=== PATIENT | male | born 1965 | race Caucasian/White ===

== ENCOUNTER 2016-10-06 22:40 | Inpatient (IN) | payer OTHER ==
--- NOTE | ~2016-10-06 | DS ---
Discharge Summary [facility] [address] [place]. [address] NAME: LISA KAPLAN : 69 STATUS : DIS IN PAT#: [id number] AGE: 51 ADM/REG DATE : 10/06/16 MR#: [id number] REPORT SERV DATE: 10/14/16 DICTATED BY: HUSSEIN NÚÑEZ DATE: 10/13/16 REPORT STATUS : Draft TRANSCRIBED BY: NISH DATE: 10/13/16 Data Collection from hospitalization DISCHARGE DIAGNOSES: 1. Acute coronary syndrome, unstable angina. 2. Coronary artery disease. 3. Diabetes mellitus, type 2. 4. Hypercholesterolemia. 5. Obstructive sleep apnea. CONSULTATIONS: Julieta Hernandez NP PROCEDURES PERFORMED: Left heart catheterization, left ventriculography, coronary angiography, supravalvular aortography 10/10/2016. MEDICATIONS: Moses Aspirin 325 mg with lunch, Coreg 25 mg twice daily, Plavix 75 mg daily, Lantus insulin 30 units at bedtime, levothyroxine sodium 100 mcg daily, Provigil 200 mg daily, Protonix 40 mg twice daily, Percocet 10/325 one every six hours as needed, Invokana 300 mg with lunch, Januvia 100 mg with lunch. CONDITION AT DISCHARGE: Upon discharge, he did appear to be doing well and had no further chest pain noted. DISPOSITION: He had been discharged home to continue a 4 g sodium, low cholesterol, no concentrated carbohydrate, 1800-calorie ADA cardiac diet with activity as discussed. He is to follow up with me in the office on 10/17/2016, follow up with his primary care physician as needed. HOSPITAL COURSE: This 51-year-old male had been followed by Dr. Herrera, who was known to me from prior care. He had a history of coronary artery disease with 04/02/2016, [facility], catheterization reportedly demonstrating 80% to 90% LAD stenosis then treated with 2.25 x 23 Mini Vision bare-metal stent. He had recurrent angina in May 2016. Catheterization performed by myself at [facility] demonstrated distal LAD in-stent restenosis of 90% then treated with a 2.25 x 28 SYNERGY Everolimus-Eluting stent. His cardiovascular history was further remarkable for treated hypercholesterolemia, type 2 diabetes, hypertension, preserved LV systolic function with grade 2 diastolic dysfunction per June 2016 echo and June 2016 CTA at [facility] confirming ascending aortic dilation of 4.4 cm. He had minimal activity provoked retrosternal chest discomfort lasting 30 minutes for the last five days. He presented to the emergency room describing chest pain with exertion, though the emergency room physician reported this was at rest. He was admitted and treated in a routine fashion for acute coronary syndrome including heparin and DAPT and had chest pain at rest on the morning of admission, which lasted 30 minutes. He was admitted for further evaluation and treatment. Upon admission to the hospital, he had been placed on acute coronary syndrome orders. He had been placed on Pepcid 20 mg at bedtime, Tylenol 650 mg every four hours as needed for mild pain or temperature greater than 101, Vicodin one every 4 hours as needed for moderate pain and relieved by acetaminophen. Morphine 2 mg to 4 mg IV every two hours as needed for severe pain, Zofran 4 mg IV every six hours as needed for nausea, Surfak 240 mg twice daily as needed, Plavix 75 mg daily, and Discharge Summary [address] [address] NAME: LISA KAPLAN : 69 STATUS : DIS IN PAT#: [id number] AGE: 51 ADM/REG DATE : 10/06/16 MR#: [id number] REPORT SERV DATE: 10/14/16 DICTATED BY: HUSSEIN NÚÑEZ DATE: 10/13/16 REPORT STATUS : Draft TRANSCRIBED BY: NISH DATE: 10/13/16 aspirin 325 mg orally daily. He was also begun on cardiovascular heparin drip. He had been placed on a cardiac diabetic diet. Following the day of admission, he was evaluated by Julieta Hernandez for medical management and she placed him on level 2 sliding scale insulin for aggressive control while in the hospital. He had also been placed on Levemir per his home medication and was to continue his current ADA diet as started upon hospital admission. His home oral diabetic medications were to be adjusted as needed. While in the hospital, he had been placed on Flonase twice daily for nasal congestion and he was to have humidified oxygen for his oxygen needs. He was also encouraged to use his home CPAP while here in the hospital for his obstructive sleep apnea, and he was instructed to ask his family members to bring this to the hospital. On 10/08/2016, he did continue to do well. His hemoglobin A1c was noted to be at 7.8. He was continued on his current diabetic medications. He was afebrile and his vital signs were stable. He did remain in stable condition and had no further complaints of chest pain. Catheterization had been discussed with the patient, and he was agreeable to proceed with this. On 10/09/2016, he did note that he had, had an episode of chest pain lasting less than 3 minutes. He was afebrile and his vital signs had remained stable. He was continued on supportive care. He did continue to do well, and on 10/10/2016, he did undergo the above catheterization. He had remained in stable condition and IV heparin was discontinued. As he continued to do well, he was then discharged with the above instructions. Information collected by: Tab PandeyI.T. I submit the above information as my discharge summary. [facility]/NISH Hussein Núñez M.D. / [id number] CC: Bola Martin M.D.
--- NOTE | ~2016-10-06 | HP ---
History And Physical [facility] [address] [place]. [address] NAME: LISA KAPLAN : 69 STATUS : ADM Marcos PAT#: [id number] AGE: 51 ADM/REG DATE : 10/06/16 MR#: [id number] REPORT SERV DATE: 10/07/16 DICTATED BY: HUSSEIN NÚÑEZ DATE: 10/07/16 REPORT STATUS : Draft TRANSCRIBED BY: NISH DATE: 10/07/16 DATE OF ADMISSION: 10/06/2016 CHIEF COMPLAINT: Chest pain. HISTORY OF PRESENT ILLNESS: 51-year-old man, followed by Dr. Herrera, known to me from prior care, has history of coronary artery disease with 03/2016 [facility] catheterization reportedly demonstrating 80% to 90% LAD stenosis, then treated with 2.25 x 23 Mini Vision bare metal stent. The patient had recurrent angina and 05/2016 catheterization performed by myself at [facility] demonstrated distal LAD in-stent restenosis of 90%, then treated with 2.25 x 28 Synergy Everolimus-Eluting stent. The patient's cardiovascular history is further remarkable for treated hypercholesteremia, type 2 diabetes, hypertension, preserved LV systolic function with grade 2 diastolic dysfunction. Per 06/2016 echo and 06/2016 CTA at [facility] confirming ascending aortic dilatation of 4.4 cm. The patient has had minimal activity provoked retrosternal chest discomfort lasting 30 minutes for the last five days. He came to the emergency room yesterday describing chest pain with exertion though ER physician reported this was at rest. He has been admitted and treated in a routine fashion for acute coronary syndrome including heparin and DAPT and had chest pain at rest this morning, which lasted 30 minutes. He has not had further chest pain. PAST MEDICAL HISTORY: 1. CAD-LAD BMS as defined above with in-stent restenosis treated with FTAMATA 05/2016. 2. Preserved LV systolic function, compensated diastolic dysfunction. 3. Hypertension. 4. DM 2. 5. Hypercholesterolemia. 6. Hypothyroidism. 7. Ascending aortic TAA. HOME MEDICATIONS: Carvedilol 25 mg b.i.d., levothyroxine 100 mcg daily, modafinil 200 mg daily, Invokana 300 mg daily, Januvia 100 mg daily, Lantus 20 units daily, omeprazole 20 mg daily, Plavix 75 mg daily, pravastatin 40 mg daily, aspirin 325 mg daily, not taking AndroGel. ALLERGIES: TO PENICILLIN. SOCIAL HISTORY: Does not smoke. No alcohol consumption admitted to. FAMILY HISTORY: Noncontributory. REVIEW OF SYSTEMS: Unremarkable. PHYSICAL EXAMINATION: History And Physical [address] [place]. [address] NAME: LISA KAPLAN : 69 STATUS : ADM Marcos PAT#: [id number] AGE: 51 ADM/REG DATE : 10/06/16 MR#: [id number] REPORT SERV DATE: 10/07/16 DICTATED BY: HUSSEIN NÚÑEZ DATE: 10/07/16 REPORT STATUS : Draft TRANSCRIBED BY: MODL DATE: 10/07/16 GENERAL: No acute distress. VITAL SIGNS: Blood pressure 117/74, respirations 16, temperature 97.6, pulse 64 and regular. NECK: No JVD. No carotid bruit. LUNGS: Clear to auscultation and percussion. CARDIAC: Soft S4, no murmurs, no rubs. ABDOMEN: Benign. EXTREMITIES: Warm without edema. Right and left femoral pulses +2. DATA: BUN and creatinine 14 and 1.04 yielding EGFR of 97, troponin I undetectable x2. White blood cell count 7.8 thousand, hematocrit 42.0%, and platelet count 213,000. EKG; sinus rhythm at a rate of 68, normal axis, normal intervals, normal EKG. ASSESSMENT AND PLAN: 1. Chest pain-compatible with unstable angina. Continuing DAPT. Adding aspirin. Continue other medications. Cardiac catheterization and possible PCI after weekend holiday or sooner if clinically unstable. All risks discussed. 2. Coronary artery disease-as defined above. 3. Diabetes mellitus 2-consult hospitalist. 4. Hypercholesteremia-continue statin therapy. 5. Hypothyroidism-repleted. 6. Ascending thoracic aortic aneurysm-noted. /MODL Hussein Núñez M.D. / [id number] CC: Bola Martin M.D.
--- NOTE | ~2016-10-06 | OP ---
Record Of Operation [facility] [address] [place]. [address] NAME: LISA KAPLAN : 69 STATUS : DIS Marcos PAT#: [id number] AGE: 51 ADM/REG DATE : 10/06/16 MR#: [id number] REPORT SERV DATE: 10/10/16 DICTATED BY: HUSSEIN NÚÑEZ DATE: 10/10/16 REPORT STATUS : Draft TRANSCRIBED BY: MODDaryl DATE: 10/10/16 DATE OF PROCEDURE: 10/10/2016 PROCEDURE: Left heart catheterization, left ventriculography, coronary angiography, supravalvular aortography. INDICATIONS: Known coronary artery disease, symptoms compatible with acute coronary syndrome (unstable angina, class IV angina). PROCEDURE IN DETAIL: Informed consent obtained. The patient was brought to catheterization laboratory in the fasting state with renal prophylaxis protocol initiated and intravenous heparin infusion ongoing. Routine sterile prep and drape performed. Monitored sedation administered. 2% Xylocaine with epinephrine infiltrated to right groin. A 6-Macanese sheath to right femoral artery following anterior wall puncture. A 6-Macanese angled pigtail catheter crossed the aortic valve without difficulty. Left ventricular pressures recorded. Left ventriculography in SOTO projection. Pullback to ascending aorta under pressure recording. Supravalvular aortography performed in LITHUANIAN projection. Catheter removed. A 6- Macanese JL5 and then 6-Macanese JR4 diagnostic catheters were used to cannulate coronary artery ostia with angiography of each vessel performed. All catheters removed. Right common femoral arterial sheath side port angiography was performed followed by ProGlide closure of common femoral puncture site. The patient to recovery area in satisfactory condition, without immediate complication, anticipating administration of vancomycin. TOTAL CONTRAST: 125 mL, Isovue-370. TOTAL X-RAY DOSE: 427 mGy. TOTAL MONITORED SEDATION TIME: 19 minutes. FINDINGS: Hemodynamics: Central aortic pressure 110/70 mmHg, left ventricular pressure 110/12 mmHg. LEFT VENTRICULOGRAPHY: In SOTO left ventriculography, all segments moved normally. Ejection fraction is estimated to be no lower than 60%. No mitral regurgitation identified. AORTOGRAPHY: In LITHUANIAN supravalvular aortography, dilation of the ascending aorta identified. Maximum diameter is 47 mm. 1+ aortic regurgitation is seen. CORONARIES: 1. Left main coronary artery: Medium caliber, short vessel, without stenosis. 2. LAD: Medium caliber vessel, reaching the apex of the heart. Distal LAD atresia identified. In distal LAD, widely patent stent is seen, and proximal to the stent, less than 50% narrowing is seen at the origin of a diagonal branch. Diagonal branch is patent. 3. Circumflex: Medium caliber, angiographically nondominant vessel giving rise to bifurcating obtuse marginal vessel and terminating as a very small distal obtuse Record Of Operation [facility] [address] [place]. [address] NAME: LISA KAPLAN : 69 STATUS : DIS Marcos PAT#: [id number] AGE: 51 ADM/REG DATE : 10/06/16 MR#: [id number] REPORT SERV DATE: 10/10/16 DICTATED BY: HUSSEIN NÚÑEZ DATE: 10/10/16 REPORT STATUS : Draft TRANSCRIBED BY: NISH DATE: 10/10/16 marginal vessel. Minimal luminal irregularity identified in the circumflex system. 4. Right coronary artery: Large caliber, angiographically dominant vessel terminating as posterolateral and posterior descending arteries. Luminal irregularities identified in the mid right coronary artery and posterolateral branch. FINAL IMPRESSION: 1. Low left ventricular end-diastolic pressure. 2. Normal left ventricular ejection fraction without segmental wall motion abnormalities. 3. Dilated ascending aorta at 47 mm at maximum diameter. 4. Mild aortic regurgitation. 5. Patent distal LAD stent with proximal to stent less than 50% narrowing at the origin of a diagonal vessel. 6. Atretic apical LAD. 7. Luminal irregularities in mid right coronary artery and right posterolateral artery and circumflex system. /MODL Hussein Núñez M.D. / [id number] CC: Bola Martin M.D.
--- NOTE | ~2016-10-06 | CN ---
Consultation Report [facility] [address] [place]. [address] NAME: LISA KAPLAN : 69 STATUS : ADM Marcos PAT#: [id number] AGE: 51 ADM/REG DATE : 10/06/16 MR#: [id number] REPORT SERV DATE: 10/09/16 DICTATED BY: JULIETA HERNANDEZ DATE: 10/08/16 REPORT STATUS : Draft TRANSCRIBED BY: MODL DATE: 10/08/16 HOSPITALIST CONSULTATION DATE OF CONSULTATION: 10/07/2016 REASON FOR CONSULTATION: Diabetes management per Dr. Núñez. HISTORY OF PRESENT ILLNESS: This is an awake, alert, and oriented pleasant 51-year-old, male, who was admitted to Dr. Núñez for chest pain on 10/06/2016. We have been asked to manage his diabetes during the course of this hospital stay. The patient had reportedly developed chest pain on activity and presented to the ER, and we anticipate cardiac catheterization after the hol. The patient reports an approximate two-year history of diabetes mellitus, currently controlled with oral medications as well as long-acting insulin at home. He has no complaints at this time other than nasal congestion and maxillary facial tenderness. He denies wheezing, shortness of breath, chest pain, palpitations, headaches, and dizziness. PAST MEDICAL HISTORY: Significant for, 1. Insulin-dependent type 2 diabetes mellitus. 2. Hypothyroid. 3. [place]. 4. High cholesterol. 5. Sleep apnea. 6. Fibromyalgia. 7. Osteoarthritis. 8. GERD. 9. Hemorrhoids. 10.Prostate problems. 11.Hypertension. 12.Palpitations, SVT. 13.Chronic sinusitis. PAST SURGICAL HISTORY: Significant for, 1. Cardiac catheterization with stents, 03/2016 and 05/2016. 2. Cardiac ablation 02/2012. 3. Tonsillectomy and adenoidectomy, 1979. 4. Infectious tumors removed from left ear, 1985 and 1992. 5. C-spine fusion, 1999. [employer] OPERATOR: Dr. Núñez. SOCIAL HISTORY: The patient is and lives at home with his . He denies tobacco, alcohol, and illicit drug use. FAMILY HISTORY: Reports father had a history of diabetes, hypertension, CAD, and [place]. Mother Consultation Report [facility] [address] [place] [place]. [address] NAME: LISA KAPLAN : 69 STATUS : ADM Marcos PAT#: [id number] AGE: 51 ADM/REG DATE : 10/06/16 MR#: [id number] REPORT SERV DATE: 10/09/16 DICTATED BY: JULIETA HERNANDEZ DATE: 10/08/16 REPORT STATUS : Draft TRANSCRIBED BY: NISH DATE: 10/08/16 had a history of rheumatoid arthritis and CVA. ALLERGIES: PENICILLIN AND FLOXACIN. HOME MEDICATIONS: 1. Aspirin 325 mg p.o. daily. 2. Invokana 300 mg p.o. with lunch. 3. Coreg 25 mg p.o. twice a day. 4. Plavix 75 mg p.o. daily. 5. Lantus 30 units subcutaneous every bedtime. 6. Levothyroxine 100 mcg p.o. daily. 7. Proventil 200 mg p.o. daily. 8. Percocet 10/325 mg one tab p.o. q.4-6 hours p.r.n. pain. 9. Protonix 40 mg p.o. twice daily. 10.Januvia 100 mg p.o. with lunch. REVIEW OF SYSTEMS: A complete 10-point review of systems was negative except as per HPI. PHYSICAL EXAMINATION: VITAL SIGNS: T 98.4, P 76, RR 17, BP 128/81, SpO2 93% on room air. GENERAL: A well-appearing male, in no acute distress. NEURO: Awake, alert, and oriented x3 without focal deficit. HEENT: Normocephalic, atraumatic without lymphadenopathy. Maxillary tenderness bilaterally. NECK: Supple. No JVD. LUNGS: CTA in all lung bartholomew with normal respiratory effort. CV: Regular rate and rhythm. S1, S2 auscultated. ABDOMEN: Soft, round, nontender. Bowel sounds active in all quadrants. No masses. EXTREMITIES: No cyanosis or edema. Cap refill within normal limits. PSYCH: Normal affect. SKIN: Clean, dry, and intact with mucous membranes pink and moist. PERTINENT LABS: Serum glucose 198, blood glucose fingerstick ranges 131-198 since admission. BUN and creatinine are normal at 14 and 1.04. ASSESSMENT AND PLAN: 1. Insulin-dependent type 2 diabetes mellitus. The patient reports an approximate two- year history of diabetes. His last A1c was drawn at his PCPs office approximately one and a half weeks ago with no current results. We will start him on level 2 sliding scale insulin for aggressive control while in hospital. We will start Levemir per his home medications and we will continue his current ADA diet as started by Dr. Núñez. We will monitor his labs while he is here and plan to restart his p.o. medications upon discharge. We will adjust these medications as needed while in hospital. Consultation Report [address] [place]. [address] NAME: LISA KAPLAN : 69 STATUS : ADM Marcos PAT#: [id number] AGE: 51 ADM/REG DATE : 10/06/16 MR#: [id number] REPORT SERV DATE: 10/09/16 DICTATED BY: JULIETA HERNANDEZ DATE: 10/08/16 REPORT STATUS : Draft TRANSCRIBED BY: NISH DATE: 10/08/16 2. Nasal congestion, this is acute. We will add Flonase twice daily and provide humidified oxygen for his oxygen needs. 3. Sleep apnea. This is chronic and patient reports intermittent and inconsistent use of CPAP at home. He is encouraged to use his home CPAP while here and is instructed to ask family members to bring it to the bedside for use tonight. 4. Chest pain, this is acute with a history of coronary artery disease and previous myocardial infarction. We will defer management of this to the primary team with knowledge of plan for catheterization possibly on Sunday of next week. Thank you for this consult. We are pleased to follow this patient with you. This consult was completed through thorough [facility] of [facility], [facility], and current chart as well as thorough interview with the patient. [facility] Julieta Hernandez NP / [id number] CC: Arden Núñez M.D. Narcisa Herrera M.D.
[2016-10-06 22:25] LABS: BASOPHILS 0.1 %; BASOPHILS ABSOLUTE 0.01 10/3/uL (0.0-0.16); EOSINOPHILS 2.7 %; EOSINOPHILS ABSOLUTE 0.21 10/3/uL (0.0-0.53); ER CBC TAT 0 Hrs 10 Mins; HEMATOCRIT 41.5 % (40.0-51.0); HEMOGLOBIN 14.6 g/dL (13.6-17.8); IMMATURE GRANULOCYTES 0.3 %; IMMATURE GRANULOCYTES ABSOLUTE 0.02 10/3/uL (0.0-0.11); LYMPHOCYTES 23.2 %; LYMPHOCYTES ABSOLUTE 1.83 10/3/uL (0.67-4.30); MEAN CORPUS HGB CONC 35.2 g/dL (32.0-36.0); MEAN CORPUSCULAR HEMOGLOB 30.6 pg (26.0-34.0); MEAN PLATELET VOLUME 11.2 fL (9.2-13.0); MONOCYTES 12.2 %; MONOCYTES ABSOLUTE 0.96 10/3/uL (0.21-1.20); NEUTROPHILS 61.5 %; NEUTROPHILS ABSOLUTE 4.86 10/3/uL (2.02-8.40); PLATELET COUNT 224 10/3/uL (150-400); RBC DISTRIBUTION WIDTH 13.2 % (12.0-16.0); RED CELL COUNT 4.77 10/6/uL (4.7-6.1); WHITE BLOOD CELLS 7.9 10/3/uL (4.5-10.5)
[2016-10-06 22:26] LABS: MANUAL DIFF NO %
[2016-10-06 22:32] LABS: PARTIAL THROMBO TIME 28.4 SEC (22.5-37.2); PROTIME (NOT ORD) 13.4 SEC (12.0-14.5)
[~2016-10-06 22:40] MED LIST: ACET500CAP PO; ADDERALL PO; ADDERALL20 MG PO; AMIT25 PO; ANDROGEL5 TOP; ASAB PO; ASABAYER PO; ATEN25 PO; CARD30 PO; CLOPIDOGREL PO; COREG25 PO; CYMBALTA60 PO; DIABETIC PO; ENDOCET1 TA3 PO; ENDOCET1 TA4 PO; FLAG500TAB PO; INVOKANA300 MG PO; JANUVIA100 MG PO; JARDI25B PO; LANTUSCART SC; LEVAQUIN750 MG PO; LEVOTHROID75 MCG PO; LEVOTHYROXIN100 MCG PO; LORCET PO; LORT7 PO; OCEAN NAS; PERCOCET1 TA4 PO; PERCOCET1 TA5 PO; PLAVIX PO; PRAVACHOL40 MG PO; PRILO PO; PRILOSEC OTC20 MG PO; PRIN5 PO; PROVIGIL2 PO; SYN1 PO; ZEGERID1 CAP PO
[2016-10-06 22:47] LABS: BUN (BLOOD UREA NITROGEN) 14 MG/DL (6-23); CALCIUM, SERUM 9.1 MG/DL (8.5-10.4); CHLORIDE, SERUM 106 MMOL/L (96-112); CO2 (CARBON DIOXIDE) 28 MMOL/L (24-34); CREATININE 1.04 MG/DL (0.70-1.30); GFR AFRICAN AMERICAN 97 ML/MIN (>=60); GFR NON AFRICAN AMERICAN 84 ML/MIN (>=60); POTASSIUM, SERUM 3.8 MMOL/L (3.5-5.3); SODIUM, SERUM 139 MMOL/L (135-148); TROPONIN I <0.02 NG/ML (<0.05)
[2016-10-06 22:49] LABS: CHEST PAIN PROFILE TAT 0 Hrs 32 Mins; GLUCOSE, SERUM 198 MG/DL (60-99)
[2016-10-06] MEDS ORDERED: COREG25 PO (22:53)
[2016-10-06] MEDS ORDERED: PERCOCET 10/3251 TAB PO (22:54)
[2016-10-06] MEDS ORDERED: LEVOTHYROXIN100 MCG PO (22:54)
[2016-10-06] MEDS ORDERED: INVOKANA300 MG PO (22:54)
[2016-10-06] MEDS ORDERED: PROVIGIL2 PO (22:54)
[2016-10-06] MEDS ORDERED: LANTUS SC (22:55)
[2016-10-06] MEDS ORDERED: PLAVIX PO (22:55)
[2016-10-06] MEDS ORDERED: JANUVIA100 MG PO (22:55)
[2016-10-06] MEDS ORDERED: PROTONIX PO (22:55)
[2016-10-06] MEDS ORDERED: ASABAYER PO (22:56)
[2016-10-07 06:10] LABS: BASOPHILS 0.3 %; BASOPHILS ABSOLUTE 0.02 10/3/uL (0.0-0.16); EOSINOPHILS ABSOLUTE 0.31 10/3/uL (0.0-0.53); HEMOGLOBIN 14.7 g/dL (13.6-17.8); IMMATURE GRANULOCYTES 0.4 %; IMMATURE GRANULOCYTES ABSOLUTE 0.03 10/3/uL (0.0-0.11); LYMPHOCYTES 33.5 %; LYMPHOCYTES ABSOLUTE 2.61 10/3/uL (0.67-4.30); MEAN CORPUSCULAR HEMOGLOB 30.6 pg (26.0-34.0); MEAN CORPUSCULAR VOLUME 87.5 fL (80-100); MEAN PLATELET VOLUME 11.4 fL (9.2-13.0); MONOCYTES 13.6 %; MONOCYTES ABSOLUTE 1.06 10/3/uL (0.21-1.20); NEUTROPHILS 48.2 %; NEUTROPHILS ABSOLUTE 3.77 10/3/uL (2.02-8.40); PLATELET COUNT 213 10/3/uL (150-400); WHITE BLOOD CELLS 7.8 10/3/uL (4.5-10.5)
[2016-10-07 06:13] LABS: MANUAL DIFF NO %
[2016-10-07 06:31] LABS: CHOL/HDL RATIO(NOT ORDER) 5.7 (0-5); HDL CHOLESTEROL 28 MG/DL (> 39); LDL CHOLESTEROL 62 MG/DL (< 130); NON-HDL CHOLESTEROL 131 MG/DL (< 160); SGPT(ALT) 47 U/L (5-65); TRIGLYCERIDE 346 MG/DL (< 150); TROPONIN I <0.02 NG/ML (<0.05)
[2016-10-07 06:32] LABS: CHOLESTEROL 159 MG/DL (< 200)
[2016-10-07 11:44] LABS: ASCORBIC ACID (UR NOT ORDER) NEG (NEG); BILIRUBIN, URINE NEGATIVE (NEG); KETONE, URINE 20 MG/DL (NEG); LEUKOCYTE ESTERASE(NOT OR NEG (NEG); WBC (NOT ORDERED) (RFLEX) 1 (0-5)
[2016-10-09 02:45] LABS: BASOPHILS 0.2 %; BASOPHILS ABSOLUTE 0.02 10/3/uL (0.0-0.16); EOSINOPHILS 2.6 %; EOSINOPHILS ABSOLUTE 0.25 10/3/uL (0.0-0.53); HEMATOCRIT 44.6 % (40.0-51.0); HEMOGLOBIN 15.5 g/dL (13.6-17.8); IMMATURE GRANULOCYTES 0.2 %; IMMATURE GRANULOCYTES ABSOLUTE 0.02 10/3/uL (0.0-0.11); LYMPHOCYTES 20.8 %; LYMPHOCYTES ABSOLUTE 1.98 10/3/uL (0.67-4.30); MEAN CORPUS HGB CONC 34.8 g/dL (32.0-36.0); MEAN CORPUSCULAR HEMOGLOB 30.8 pg (26.0-34.0); MEAN CORPUSCULAR VOLUME 88.7 fL (80-100); MEAN PLATELET VOLUME 10.9 fL (9.2-13.0); MONOCYTES 17.2 %; MONOCYTES ABSOLUTE 1.64 10/3/uL (0.21-1.20); PLATELET COUNT 242 10/3/uL (150-400); RED CELL COUNT 5.03 10/6/uL (4.7-6.1); WHITE BLOOD CELLS 9.5 10/3/uL (4.5-10.5)
[2016-10-09 02:46] LABS: MANUAL DIFF NO %
[2016-10-10 04:48] LABS: HEMATOCRIT 43.4 % (40.0-51.0); MANUAL DIFF YES %; MEAN CORPUS HGB CONC 34.6 g/dL (32.0-36.0); MEAN CORPUSCULAR HEMOGLOB 30.5 pg (26.0-34.0); MEAN CORPUSCULAR VOLUME 88.4 fL (80-100); MEAN PLATELET VOLUME 10.7 fL (9.2-13.0); PLATELET COUNT 217 10/3/uL (150-400); RED CELL COUNT 4.91 10/6/uL (4.7-6.1); WHITE BLOOD CELLS 7.4 10/3/uL (4.5-10.5)
[2016-10-10 05:05] LABS: CALCIUM, SERUM 9.3 MG/DL (8.5-10.4); CHLORIDE, SERUM 105 MMOL/L (96-112); CO2 (CARBON DIOXIDE) 24 MMOL/L (24-34); CREATININE 0.94 MG/DL (0.70-1.30); GFR AFRICAN AMERICAN 110 ML/MIN (>=60); GFR NON AFRICAN AMERICAN 95 ML/MIN (>=60); GLUCOSE, SERUM 184 MG/DL (60-99); POTASSIUM, SERUM 4.2 MMOL/L (3.5-5.3); SODIUM, SERUM 137 MMOL/L (135-148)
[2016-10-10 05:06] LABS: BUN (BLOOD UREA NITROGEN) 18 MG/DL (6-23)
[2016-10-10 05:18] LABS: BAND NEUTROPHILS 3 %; LYMPHOCYTES 33 %; LYMPHOCYTES ABSOLUTE (CALC) 2.44 10/3/uL (0.67-4.30); MONOCYTES 12 %; MONOCYTES ABSOLUTE (CALC) 0.89 10/3/uL (0.21-1.20); NEUTROPHILS ABSOLUTE (CALC) 4.07 10/3/uL (2.02-8.40); PLATELET ESTIMATE ADQ (ADEQUATE); RBC MORPHOLOGY NORM (NORMAL); SEGMENTED NEUTROPHIL (0) 52 %; TOTAL NUCLEATED CELLS 100
[2016-12-29] MEDS ORDERED: PRIN5 PO (16:34)
[2016-12-29] MEDS ORDERED: IMDUR30 PO (16:36)
== END 2016-10-10 16:12 | disposition home or self-care (01) | DRG 287 ==
LOC: ER 22:40 → 5NO 23:33
PROVIDERS: Internal Medicine Cardiovascular Disease; Nurse Practitioner
PROC: 4A023N7 Measurement of Cardiac Sampling and Pressure, Left Heart, Percutaneous Approach (ICD-10-PCS; principal; 2016-10-10)
PROC: B2111ZZ Fluoroscopy of Multiple Coronary Arteries using Low Osmolar Contrast (ICD-10-PCS; 2016-10-10)
PROC: B2151ZZ Fluoroscopy of Left Heart using Low Osmolar Contrast (ICD-10-PCS; 2016-10-10)
DX: I25.119 Atherosclerotic heart disease of native coronary artery with unspecified angina pectoris (principal); I71.2 Thoracic aortic aneurysm, without rupture; Z95.5 Presence of coronary angioplasty implant and graft; E78.00 Pure hypercholesterolemia, unspecified; E11.9 Type 2 diabetes mellitus without complications; I10 Essential (primary) hypertension; E03.9 Hypothyroidism, unspecified; Z79.02 Long term (current) use of antithrombotics/antiplatelets; Z79.4 Long term (current) use of insulin; M79.7 Fibromyalgia; K21.9 Gastro-esophageal reflux disease without esophagitis; Z83.3 Family history of diabetes mellitus; Z82.49 Family history of ischemic heart disease and other diseases of the circulatory system; Z88.0 Allergy status to penicillin; G47.33 Obstructive sleep apnea (adult) (pediatric)
CPT/HCPCS: 71010; 80048; 80061; 81001; 82962; 83735; 84460; 84484; 85025; 85610; 85730; 93005; 93458; 93567; 99152; 99285; A9270-GY; C1760; C1769; C1894; J2250; J2405; J3010; J3370; Q9967

== ENCOUNTER 2016-10-29 11:41 | Emergency (ER) | payer OTHER ==
[~2016-10-29 11:41] MED LIST changes: +LANTUS SC; +PERCOCET 10/3251 TAB PO; +PROTONIX PO
[2016-10-29 13:14] LABS: BASOPHILS 0.3 %; BASOPHILS ABSOLUTE 0.02 10/3/uL (0.0-0.16); EOSINOPHILS 1.1 %; EOSINOPHILS ABSOLUTE 0.08 10/3/uL (0.0-0.53); HEMATOCRIT 44.5 % (40.0-51.0); HEMOGLOBIN 15.1 g/dL (13.6-17.8); IMMATURE GRANULOCYTES 0.3 %; IMMATURE GRANULOCYTES ABSOLUTE 0.02 10/3/uL (0.0-0.11); LYMPHOCYTES 14.9 %; LYMPHOCYTES ABSOLUTE 1.06 10/3/uL (0.67-4.30); MEAN CORPUS HGB CONC 33.9 g/dL (32.0-36.0); MEAN CORPUSCULAR VOLUME 88.5 fL (80-100); MEAN PLATELET VOLUME 10.5 fL (9.2-13.0); MONOCYTES 8.7 %; MONOCYTES ABSOLUTE 0.62 10/3/uL (0.21-1.20); NEUTROPHILS 74.7 %; NEUTROPHILS ABSOLUTE 5.31 10/3/uL (2.02-8.40); PLATELET COUNT 227 10/3/uL (150-400); RBC DISTRIBUTION WIDTH 12.7 % (12.0-16.0); RED CELL COUNT 5.03 10/6/uL (4.7-6.1); WHITE BLOOD CELLS 7.1 10/3/uL (4.5-10.5)
[2016-10-29 13:16] LABS: MANUAL DIFF NO %
[2016-10-29] MEDS ORDERED: FLONASE NAS (13:17)
[2016-10-29 13:22] LABS: INTERNATIONAL NORMAL RATI 1.1 UNITS (-); PARTIAL THROMBO TIME 27.2 SEC (22.5-37.2); PROTIME (NOT ORD) 13.6 SEC (12.0-14.5)
[2016-10-29 13:29] LABS: BUN (BLOOD UREA NITROGEN) 15 MG/DL (6-23); CALCIUM, SERUM 9.1 MG/DL (8.5-10.4); CHEST PAIN PROFILE TAT 0 Hrs 21 Mins; CHLORIDE, SERUM 103 MMOL/L (96-112); CO2 (CARBON DIOXIDE) 29 MMOL/L (24-34); CREATININE 0.97 MG/DL (0.70-1.30); GFR AFRICAN AMERICAN 106 ML/MIN (>=60); GFR NON AFRICAN AMERICAN 91 ML/MIN (>=60); GLUCOSE, SERUM 106 MG/DL (60-99); POTASSIUM, SERUM 4.3 MMOL/L (3.5-5.3); SODIUM, SERUM 137 MMOL/L (135-148); TROPONIN I <0.02 NG/ML (<0.05)
[2016-12-29] MEDS ORDERED: PRIN5 PO (16:34)
[2016-12-29] MEDS ORDERED: IMDUR30 PO (16:36)
== END 2016-10-29 16:34 | disposition home or self-care (01) ==
LOC: ER 11:41
PROVIDERS: Emergency Medicine
DX: I20.9 Angina pectoris, unspecified (principal); I10 Essential (primary) hypertension; E10.9 Type 1 diabetes mellitus without complications; Z95.5 Presence of coronary angioplasty implant and graft; Z88.1 Allergy status to other antibiotic agents; Z79.4 Long term (current) use of insulin; Z79.899 Other long term (current) drug therapy
CPT/HCPCS: 71010; 80048; 83735; 84484; 85025; 85610; 85730; 93005; 96374; 96375; 99285; J2405